=== PATIENT | male | born 1980 | race Caucasian/White ===

== ENCOUNTER 2019-05-02 09:06 | Observation (INO) | payer BC, OTHER ==
[2019-05-02] MEDS ORDERED: ONDANSETRON 4 MG TAB.RAPDIS PO ONE (09:16)
[2019-05-02] MEDS ORDERED: DICYCLOMINE HCL INJ 20 MG/2 ML AMPULE IM ONE (09:16)
--- NOTE | 2019-05-02 09:16 | ER Document Report ---
ED Medical Screen (RME) - General Chief Complaint: Vomiting Stated Complaint: ABDOMINAL PAIN,VOMITING Time Seen by Provider: 05/02/19 09:15 Notes: 38 y/o male presents for abdominal pain and n/v that started at 0430 this morning. Pt is visibly moaning in triage. Abd soft, diffusely tender. Denies fever or diarrhea. I have greeted and performed a rapid initial assessment of this patient. A comprehensive ED assessment and evaluation of the patient, analysis of test results and completion of the medical decision making process with be conducted by additional ED providers. TRAVEL OUTSIDE OF THE [place] IN LAST 30 DAYS: No - Related Data Allergies/Adverse Reactions: No Known Allergies Allergy (Verified 12/04/14 14:55) Past Medical History Past Surgical History: Reports: Hx Abdominal Surgery - hernia repair Physical Exam - Vital signs Vitals: Temp Pulse Resp BP Pulse Ox 97.5 F 49 L 16 139/86 H 100 05/02/19 09:12 05/02/19 09:12 05/02/19 09:12 05/02/19 09:12 05/02/19 09:12 Course - Vital Signs Vital signs: Temp Pulse Resp BP Pulse Ox 97.5 F 49 L 16 139/86 H 100 05/02/19 09:12 05/02/19 09:12 05/02/19 09:12 05/02/19 09:12 05/02/19 09:12
[2019-05-02] MEDS ORDERED: PROMETHAZINE HCL INJ 25 MG/1 ML VIAL IM ONE (09:17)
[2019-05-02] MEDS ORDERED: NORMAL SALINE 1000 ML 1,000 ML IV ONE (09:19)
[2019-05-02] MEDS ORDERED: MAG HYDROX/AL HYDROX/SIMETH SUSP 30 ML UDCUP PO ONE (10:31)
[2019-05-02] MEDS ORDERED: LIDOCAINE 2% VISCOUS SOLN 15 ML UDCUP PO ONE (10:31)
[2019-05-02] MEDS ORDERED: METOCLOPRAMIDE HCL ORAL SOLN 10 MG/10 ML UDCUP PO ONE (10:31)
[2019-05-02] MEDS ORDERED: MORPHINE SULFATE 10 MG/ML INJ IV ONE ×2 (10:31→14:42)
--- NOTE | 2019-05-02 10:33 | ER Document Report ---
ED GI/ - General Chief Complaint: Abdominal Pain Stated Complaint: ABDOMINAL PAIN,VOMITING Time Seen by Provider: 05/02/19 09:15 Notes: HPI: 38-year-old male who presents today with some worsening abdominal pain to the epigastric region. He states that around 4:30 AM he felt the "squeezing" intermittent abdominal discomfort without radiation to the back or lower abdomen. No radiation to the chest. No chest pain or cough. Vomiting x2. No diarrhea. No vomiting of blood. Patient supposedly has had intermittent pain like this for many years according to patient and family. He states he had endoscopy in the past that showed irritation of the stomach lining. ROS: See HPI All other review of systems reviewed and otherwise negative Reviewed vital signs and nursing note as charted by RN. PHYSICAL EXAM: CONSTITUTIONAL: Alert and oriented and responds appropriately to questions. Well-appearing; well-nourished HEAD: Normocephalic; atraumatic EYES: Sclerae non-icteric ENT: Normal nose; no rhinorrhea; moist mucous membranes; pharynx without lesions noted NECK: Supple without meningismus; non-tender; no cervical lymphadenopathy, no masses CARD: Regular rate and rhythm; no murmurs; symmetric distal pulses RESP: Normal chest excursion without splinting or tachypnea; breath sounds clear and equal bilaterally; no wheezes, no rhonchi, no rales ABD/GI: Normal bowel sounds; non-distended; soft, mild tenderness to palpation of the epigastric region. No rebound or guarding. No Zamora sign. No lower abdominal tenderness. No palpable masses or abdominal bruits BACK: The back appears normal and is non-tender to palpation EXT: Normal ROM in all joints; non-tender to palpation; no edema SKIN: No acute lesions noted NEURO: CN 2-12 intact; 5/5 bilateral upper and lower extremity strength with sensation intact to light touch PSYCH: The patient's mood and manner are appropriate. Grooming and personal hygiene are appropriate. TRAVEL OUTSIDE OF THE [place] IN LAST 30 DAYS: No - Related Data Allergies/Adverse Reactions: No Known Allergies Allergy (Verified 05/02/19 09:37) Past Medical History - Social History Smoking Status: Unknown if Ever Smoked Family History: Reviewed & Not Pertinent Patient has suicidal ideation: No Patient has homicidal ideation: No Past Surgical History: Reports: Hx Abdominal Surgery - hernia repair Physical Exam - Vital signs Vitals: Temp Pulse Resp BP Pulse Ox 97.5 F 49 L 16 139/86 H 100 05/02/19 09:12 05/02/19 09:12 05/02/19 09:12 05/02/19 09:12 05/02/19 09:12 Course - Re-evaluation Re-evalutation: 05/02/19 10:33 Given the above history and physical we will obtain basic labs, liver panel and lipase, obtain a CT scan of the abdomen and pelvis, and reassess. I do believe gallbladder pathology to be unlikely. If this is unremarkable we will attempt a GI cocktail and if this is helpful, we will discharge the patient home with strict return precautions and follow-up with endoscopy outpatient referral. 05/02/19 14:15 Labs and imaging as recorded. Patient's pain was much better for an extended period of time and is reoccurred again to the same location. Patient already h ad contrast in the bladder. Patient supposedly has been at an outside hospital already and did receive already CT scan imaging of the abdomen and pelvis. 05/02/19 14:44 Still unable to manage the patient's pain. He still rolling around on the bed. Morphine does seem to settle his pain to 1 out of 10. I have called the manager fast food. Hemoglobin is 13.9. Patient will be admitted for further evaluation. The manager fast food believes he may perform an endoscopy. Patient will be admitted to the hospital service. - Vital Signs Vital signs: Temp Pulse Resp BP Pulse Ox 97.5 F 49 L 16 139/86 H 100 05/02/19 09:12 05/02/19 09:12 05/02/19 09:12 05/02/19 09:12 05/02/19 09:12 - Laboratory Result Diagrams: 05/02/19 09:50 05/02/19 09:50 Laboratory results interpreted by me: 05/02/19 05/02/19 05/02/19 09:50 09:50 09:50 WBC 15.3 H Lymph % (Auto) 6.7 L Absolute Neuts (auto) 13.6 H Seg Neutrophils % 88.8 H Glucose 154 H Urine Ketones 20 H Urine Blood SMALL H Discharge - Discharge Clinical Impression: Epigastric abdominal pain Vomiting Qualifiers: Vomiting type: unspecified Vomiting Intractability: intractable Nausea presence: with nausea Qualified Code(s): R11.2 - Nausea with vomiting, unspecified Condition: Fair Disposition: ADMITTED OBSERVATION Admitting Provider: Elisabet (Hospitalist)
[2019-05-02 10:45] LABS: ABSOLUTE MONOCYTES (AUTO) 0.6 10^3/uL (0.1-1.4); ABSOLUTE NEUT (AUTO) 13.6 10^3/uL (1.7-8.2); BASOPHILS % (AUTO) 0.2 % (0-2); EOSINOPHILS % (AUTO) 0.1 % (0-6); HEMATOCRIT 40.6 % (37.9-51.0); HEMOGLOBIN 13.9 g/dL (13.5-17.0); LYMPHOCYTES % (AUTO) 6.7 % (13-45); MEAN CORPUSCULAR HGB CONC 34.4 g/dL (32.0-36.0); MEAN CORPUSCULAR VOLUME 90 fl (80-97); MONOCYTES % (AUTO) 4.2 % (3-13); PLATELET COUNT 223 10^3/uL (150-450); RED CELL DISTRIBUTION WIDTH 13.4 % (11.5-14.0); SEGMENTED NEUTROPHILS % (AUTO) 88.8 % (42-78); TOTAL CELLS COUNTED % (AUTO) 100 %; WHITE BLOOD COUNT 15.3 10^3/uL (4.0-10.5)
[2019-05-02 10:49] LABS: APPEARANCE,URINE CLEAR; BILIRUBIN,URINE NEGATIVE (NEGATIVE); COLOR,URINE YELLOW; GLUCOSE, URINE NEGATIVE (NEGATIVE); KETONES,URINE 20 mg/dL (NEGATIVE); PROTEIN,URINE NEGATIVE (NEGATIVE); URINE SPECIFIC GRAVITY 1.046; UROBILINOGEN,URINE NEGATIVE mg/dL (<2.0)
[2019-05-02 11:03] LABS: ALBUMIN 4.2 g/dL (3.5-5.0); ALKALINE PHOSPHATASE 69 U/L (38-126); ANION GAP 11 (5-19); ASPARTATE AMINO TRANSFERASE 21 U/L (17-59); BILIRUBIN,DIRECT 0.2 mg/dL (0.0-0.4); BILIRUBIN,TOTAL 0.4 mg/dL (0.2-1.3); BLOOD UREA NITROGEN 16 mg/dL (7-20); CALCIUM 9.2 mg/dL (8.4-10.2); CARBON DIOXIDE 24 mmol/L (22-30); CHLORIDE 104 mmol/L (98-107); GLUCOSE 154 mg/dL (75-110); TOTAL PROTEIN 7.3 g/dL (6.3-8.2)
--- NOTE | 2019-05-02 13:16 | RADIOLOGY REPORT (SQ) ---
EXAM DESCRIPTION: CT ABD/PELVIS WITH IV ONLY COMPLETED DATE/TIME: 05/02/2019 12:49 pm REASON FOR STUDY: 42; pain; vomiting COMPARISON: 12/24/2007. TECHNIQUE: CT scan of the abdomen and pelvis performed using helical scanning technique with dynamic intravenous contrast injection. No oral contrast. Images reviewed with lung, soft tissue, and bone windows. Reconstructed coronal and sagittal MPR images reviewed. Delayed images for evaluation of the urinary system also acquired. All images stored on PACS. All CT scanners at this facility use dose modulation, iterative reconstruction, and/or weight based d osing when appropriate to reduce radiation dose to as low as reasonably achievable (ALARA). [facility]: Dose Right [facility]: CareDose [facility]: Dose Right [facility]: Teradose 4D [facility]: Favor CONTRAST TYPE AND DOSE: contrast/concentration: Isovue 350.00 mg/ml; Total Contrast Delivered: 81.0 ml; Total Saline Delivered: 68.0 ml RENAL FUNCTION: BUN 16 creatinine 0.69. RADIATION DOSE: CT Rad equipment meets quality standard of care and radiation dose reduction techniq ues were employed. CTDIvol: 5.0 - 6.3 mGy. DLP: 637 mGy-cm.. LIMITATIONS: None. FINDINGS: LOWER CHEST: No significant findings. No nodules or infiltrates. LIVER: Normal size. No masses. No dilated ducts. SPLEEN: Normal size. No focal lesions. PANCREAS: No masses. No significant calcifications. No adjacent inflammation or peripancreatic fluid collections. Pancreatic duct not dilated. GALLBLADDER: Contrast is present due to biliary excretion. No inflammatory changes to suggest cholecy stitis. ADRENAL GLANDS: No significant masses or asymmetry. RIGHT KIDNEY AND URETER: No solid masses. No significant calcifications. No hydronephrosis or hyd roureter. LEFT KIDNEY AND URETER: No solid masses. No significant calcifications. No hydronephrosis or hydr oureter. AORTA AND VESSELS: No aneurysm. No dissection. Renal arteries, SMA, celiac without stenosis. RETROPERITONEUM: No retroperitoneal adenopathy, hemorrhage or masses. BOWEL AND PERITONEAL CAVITY: No masses or inflammatory changes. No free fluid or peritoneal masses. APPENDIX: Normal. PELVIS: No mass. No free fluid. Normal bladder. ABDOMINAL WALL: No masses. No hernias. BONES: No significant or acute findings. There is mild chronic wedging of several vertebrae. There is disc space narrowing with endplate sclerosis and vacuum change at L1-L2 and L5-S1. OTHER: No other significant finding. IMPRESSION: DEGENERATIVE DISC DISEASE IN THE LUMBAR SPINE. NO SIGNIFICANT OR ACUTE FINDING IN THE A BDOMEN OR PELVIS ON CT SCAN WITH IV CONTRAST. COMMENT: At the time of the scan it was noted that the patient's bladder was full of contrast. The patient than told the technical agronomist that he had a CT scan with contrast this morning at [facility]. The patient has received a double dose of intravenous contrast. Should consider hydration of the patient to ensure that there is no renal consequence. TECHNICAL DOCUMENTATION: JOB ID: [id number] Quality ID # [id number]: Final reports with documentation of one or more dose reduction techniques (e.g., Au tomated exposure control, adjustment of the mA and/or kV according to patient size, use of iterative reconstruction technique) 2010 [employer]- All Rights Reserved Reading location - IP/workstation name: [email or web address]
[2019-05-02] MEDS ORDERED: ACETAMINOPHEN 325 MG TABLET PO PRN (15:52)
[2019-05-02] MEDS ORDERED: PROMETHAZINE HCL INJ 25 MG/1 ML VIAL IV PRN (15:52)
[2019-05-02] MEDS ORDERED: ACETAMINOPHEN 650 MG SUPP.RECT PR PRN (15:52)
[2019-05-02] MEDS ORDERED: TEMAZEPAM 15 MG CAPSULE PO PRN (15:52)
[2019-05-02] MEDS ORDERED: MAG HYDROX/AL HYDROX/SIMETH SUSP 30 ML UDCUP PO PRN (15:52)
[2019-05-02] MEDS ORDERED: MORPHINE SULFATE 10 MG/ML INJ IV PRN (15:52)
--- NOTE | 2019-05-02 16:31 | PDOC H&P ---
History of Present Illness Admission Date/PCP: May 02, 2019 Patient complains of: Epigastric abdominal pain History of Present Illness: LON COLÓN is a 38 year old male who had acute onset epigastric abdominal pain at 4:30 this morning. A friend drove him to the [facility]. He was seen there at 5:00 this morning. He reports that they gave him a CT scan and discharged him. He states that the pain was no better. He reports vomiting over 20 times just this morning. He states that he had a similar episode of this type of abdominal pain approximately 5 years ago. He underwent gastroscopy and it revealed severe gastritis. His white blood cell count is elevated at 15,000. Serum chemistries are normal except for slightly elevated glucose at 115. Hemoglobin is normal at 13.9. The patient did not report the earlier mentioned department visit to the emergency room physician. A CT scan was obtained and not until after the scan did the patient revealed that he was at a stand-alone emergency department earlier in the morning. The patient will be admitted to the hospitalist service. Past Medical History Cardiac Medical History: Reports: None Pulmonary Medical History: Reports: None EENT Medical History: Reports: None Neurological Medical History: Reports: None Endocrine Medical History: Reports: None Renal/ Medical History: Reports: None Malignancy Medical History: Reports: None GI Medical History: Reports: Other - Gastritis Musculoskeltal Medical History: Reports: Other - Degenerative disc disease lumbar spine Skin Medical History: Reports: None Psychiatric Medical History: Reports: Attention Deficit Hyperactivity Disorder, Tobacco Dependency Traumatic Medical History: Reports: None Hematology: Reports: None Infectious Medical History: Reports: None Past Surgical History Past Surgical History: Reports: Herniorrhaphy, Other - Gastroscopy Social History Information Source: Patient 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 Family History Family History: None, Reviewed & Not Pertinent Parental Family History Reviewed: Yes Children Family History Reviewed: Yes Sibling(s) Family History Reviewed.: Yes Medication/Allergy Home Medications: Methocarbamol [Robaxin 500 Mg Tablet] 500 mg PO QID PRN #40 tablet 12/04/14 Ondansetron HCl [Zofran 4 mg Tablet] 1 - 2 tab PO Q6 PRN #15 tablet 12/04/14 Oxycodone HCl/Acetaminophen [Percocet 5-325 mg Tablet] 1 - 2 tab PO ASDIR PRN #25 tablet 12/04/14 Allergies/Adverse Reactions: No Known Allergies Allergy (Verified 05/02/19 09:37) Review of Systems All systems: reviewed and no additional remarkable complaints except as stated Gastrointestinal: PRESENT: abdominal pain, nausea, vomiting Neurological: ABSENT: abnormal speech, convulsions, memory loss, numbness, robert mor(s), vertigo Psychiatric: PRESENT: anxiety. ABSENT: depression Endocrine: ABSENT: cold intolerance, heat intolerance, polydipsia, polyphagia, polyuria Hematologic/Lymphatic: ABSENT: easy bleeding, easy bruising, lymphadenopathy Allergic/Immunologic: ABSENT: seasonal rhinorrhea Physical Exam Vital Signs: Temp Pulse Resp BP Pulse Ox 98.0 F 56 L 14 130/74 H 100 05/02/19 15:16 05/02/19 15:16 05/02/19 15:16 05/02/19 15:16 05/02/19 15:16 Intake & Output 05/01/19 05/02/19 05/03/19 06:59 06:59 06:59 Intake Total 1000 Balance 1000 Weight 71.1 kg General appearance: PRESENT: cooperative, well-developed, other - Well-developed 38-year-old in moderate to severe distress intermittently falling asleep from pain medicine but yet complained that his pain medicine was about to wear off and he only received a dose less than 1 hour ago. Head exam: PRESENT: atraumatic, normocephalic Eye exam: PRESENT: conjunctiva pink. ABSENT: scleral icterus Ear exam: PRESENT: normal external ear exam. ABSENT: bleeding, drainage Mouth exam: PRESENT: dry mucosa, tongue midline Neck exam: ABSENT: carotid bruit, JVD, lymphadenopathy Respiratory exam: PRESENT: clear to auscultation clarisse, symmetrical, unlabored. ABSENT: accessory muscle use, prolonged expiratory phas, rales, rhonchi, tachypnea, wheezes Cardiovascular exam: PRESENT: RRR, +S1, +S2 GI/Abdominal exam: PRESENT: normal bowel sounds, soft, tenderness - Across the epigastrium. ABSENT: distended, guarding, rigid Rectal exam: PRESENT: deferred Gentrourinary exam: ABSENT: indwelling catheter Extremities exam: ABSENT: joint swelling, pedal edema Musculoskeletal exam: PRESENT: ambulatory, normal inspection. ABSENT: deformity Neurological exam: PRESENT: awake, oriented to person, oriented to place, oriented to time, oriented to situation, CN II-XII grossly intact. ABSENT: alert - Due to IV analgesia the patient kept stating in and out between questions., altered Psychiatric exam: PRESENT: anxious. ABSENT: agitated Focused psych exam: ABSENT: delusional, internal stimuli, pressured speech, restlessness Skin exam: PRESENT: dry, normal color, warm. ABSENT: erythema, pallor, rash Results Laboratory Results: 05/02/19 09:50 05/02/19 09:50 05/02/19 05/02/19 05/02/19 09:50 09:50 09:50 WBC 15.3 H RBC 4.50 Hgb 13.9 Hct 40.6 MCV 90 MCH 31.0 MCHC 34.4 RDW 13.4 Plt Count 223 Seg Neutrophils % 88.8 H Sodium 139.0 Potassium 4.0 Chloride 104 Carbon Dioxide 24 Anion Gap 11 BUN 16 Creatinine 0.69 Est GFR ( Amer) > 60 Glucose 154 H Calcium 9.2 Total Bilirubin 0.4 AST 21 Alkaline Phosphatase 69 Total Protein 7.3 Albumin 4.2 Lipase 39.5 Urine Color YELLOW Urine Appearance CLEAR Urine pH 7.0 Ur Specific [place] 1.046 Urine Protein NEGATIVE Urine Glucose (UA) NEGATIVE Urine Ketones 20 H Urine Blood SMALL H Urine RBC (Auto) 3 Impressions: Abdomen/Pelvis CT 05/02/19 10:31 IMPRESSION: DEGENERATIVE DISC DISEASE IN THE LUMBAR SPINE. NO SIGNIFICANT OR ACUTE FINDING IN THE ABDOMEN OR PELVIS ON CT SCAN WITH IV CONTRAST. Assessment and Plan - Diagnosis (1) Epigastric abdominal pain Is this a current diagnosis for this admission?: Yes (2) Vomiting Qualifiers: Vomiting type: unspecified Vomiting Intractability: intractable Nausea presence: with nausea Qualified Code(s): R11.2 - Nausea with vomiting, unspecified Is this a current diagnosis for this admission?: Yes (3) Cannabis hyperemesis syndrome concurrent with and due to cannabis abuse Is this a current diagnosis for this admission?: Yes (4) Degenerative disc disease, lumbar Is this a current diagnosis for this admission?: Yes - Plan Summary Summary: 05/02/2019 Patient is admitted to the hospitalist service. Epigastric abdominal pain-history of severe gastritis. I have ordered Hemoccult and Gastroccult testing. I will repeat his CBC this evening and then again in the morning. The emergency department physician already spoke with Dr. De Guzman who will be seeing the patient in consult. I will make him n.p.o. for possible gastroscopy tomorrow. The patient has been placed on IV Protonix 40 mg every 12 hours as well. Morphine will be available for analgesia as well acetaminophen. I have placed him on intravenous normal saline as well. Vomiting-the patient admits to occasional marijuana use. I have ordered a urine drug screen to see if his use was recent. This is possibly hyperemesis related to marijuana (cyclic vomiting) due to the pattern of 20 episodes of vomiting over the course of 3 to 4 hours. Gastritis usually does not cause that level of vomiting. And I would have expected some blood in the vomitus. Additionally his lipase was negative and so there is no evidence of pancreatitis by blood test or CT scan. He does admit to 3-6 beers daily and so this certainly could be an alcohol related gastritis. I will administer thiamine and IV fluids. Benzodiazepines will be available in the event of withdrawal. Degenerative disc disease of the lumbar spine-the patient states that the previous episode similar to this was caused by taking a lot of "pain "medicines. I asked specifically about ibuprofen and naproxen. He said that he has never had a problem with these medications and he tolerates them. He did just receive intravenous morphine and so I am not sure how reliable he is as a historian at this moment. Degenerative disc disease certainly could be a reason to use NSA IDs. He did state that he does not take anything unless it is "killing" him. - Time Time Spent with patient: 35 or more minutes Smoking Cessation Education: 3 to 10 minutes Medications reviewed and adjusted accordingly: Yes Anticipated discharge: Home Within: within 48 hours
[2019-05-02] MEDS: NORMAL SALINE 1000 ML 1,000 ML IV PRN (18:12)
[2019-05-02 18:32] LABS: HEMATOCRIT 41.2 % (37.9-51.0); HEMOGLOBIN 14.3 g/dL (13.5-17.0); MEAN CORPUSCULAR HGB CONC 34.7 g/dL (32.0-36.0); MEAN CORPUSCULAR VOLUME 90 fl (80-97); PLATELET COUNT 240 10^3/uL (150-450); RED BLOOD COUNT 4.61 10^6/uL (4.35-5.55); RED CELL DISTRIBUTION WIDTH 13.1 % (11.5-14.0); WHITE BLOOD COUNT 13.9 10^3/uL (4.0-10.5)
--- NOTE | 2019-05-02 20:59 | PDOC CONSULTATION ---
Consultation Consult Date: 05/02/19 Provider Consulted: LETI RAHMAN Consult reason:: epigastric pain History of Present Illness Admission Date/PCP: 05/02/19 16:10 History of Present Illness: LON COLÓN is a 38 year old male patient admitted for epigastric abdominal pain supposed GI bleeding but Hgb on repeat is stable post hydration no melena went to ED x [address] scan negative was admitted here admits to heavy alcohol use denies any dysphagia there is no nausea or vomiting denies any NSAIDS use no early satiety MSO4 makes it better Past Medical History Cardiac Medical History: Reports: None Denies: Congestive Heart Failure, Myocardial Infarction, Hypertension Pulmonary Medical History: Reports: None Denies: Asthma, Bronchitis, Chronic Obstructive Pulmonary Disease (COPD), Pneumonia, Tuberculosis EENT Medical History: Reports: None Neurological Medical History: Reports: None Denies: Seizures Endocrine Medical History: Reports: None Renal/ Medical History: Reports: None Denies: End Stage Renal Disease Malignancy Medical History: Reports: None GI Medical History: Reports: Gastroesophageal Reflux Disease - DRINKS MILK WHEN GETS IT, Other - Gastritis Denies: Cirrhosis Musculoskeltal Medical History: Reports: Arthritis, Other - Degenerative disc disease lumbar spine Skin Medical History: Reports: None Psychiatric Medical History: Reports: Attention Deficit Hyperactivity Disorder, Tobacco Dependency Denies: Bipolar Disorder, Depression Traumatic Medical History: Reports: None Hematology: Reports: None Denies: Anemia, Bleeding Tendencies Infectious Medical History: Reports: None Past Surgical History Past Surgical History: Reports: Herniorrhaphy, Other - Gastroscopy Social History Lives with: Family Smoking Status: Never Smoker Electronic Cigarette use?: No Frequency of Alcohol Use: Heavy - 3-6 beers daily Hx Recreational Drug Use: Yes Drugs: Marijuana Hx Prescription Drug Abuse: No - Advance Directive Resuscitation Status: Full Code Family History Family History: None, Reviewed & Not Pertinent Parental Family History Reviewed: Yes Children Family History Reviewed: Unknown Sibling(s) Family History Reviewed.: Unknown Medication/Allergy Home Medications: Dextroamphetamine/Amphetamine [Adderall Xr 5 mg Capsule] 10 mg PO DAILY MDD LAST FILLED 03-09-19 FOR 30 DS 05/02/19 Allergies/Adverse Reactions: No Known Allergies Allergy (Verified 05/02/19 09:37) Review of Systems Constitutional: ABSENT: fever(s), headache(s), night sweats, weakness Eyes: ABSENT: visual disturbances Ears: ABSENT: hearing changes Nose, Mouth, and Throat: ABSENT: mouth pain, sore throat Respiratory: ABSENT: dyspnea, hemoptysis Gastrointestinal: ABSENT: hematemesis, hematochezia, melena, nausea, vomiting Genitourinary: ABSENT: dysuria, hematuria Neurological: ABSENT: syncope, tingling, tremor(s), vertigo Endocrine: ABSENT: polydipsia, polyphagia, polyuria Hematologic/Lymphatic: ABSENT: easy bruising Physical Exam Vital Signs: Temp Pulse Resp BP Pulse Ox 98.2 F 87 20 122/74 99 05/02/19 18:01 05/02/19 18:01 05/02/19 18:01 05/02/19 18:01 05/02/19 18:01 Intake & Output 05/01/19 05/02/19 05/03/19 06:59 06:59 06:59 Intake Total 1000 Balance 1000 Weight 71.1 kg General appearance: PRESENT: mild distress, well-developed, well-nourished Head exam: PRESENT: atraumatic, normocephalic Eye exam: PRESENT: EOMI, PERRLA. ABSENT: nystagmus, periorbital swelling, scleral icterus Mouth exam: PRESENT: moist, neck supple Neck exam: ABSENT: meningismus, thyromegaly, tracheal deviation Cardiovascular exam: PRESENT: RRR, +S1, +S2 GI/Abdominal exam: PRESENT: normal bowel sounds. ABSENT: Zamora's sign, organolmegaly Extremities exam: ABSENT: joint swelling, pedal edema Musculoskeletal exam: PRESENT: full ROM Neurological exam: PRESENT: CN II-XII grossly intact Psychiatric exam: PRESENT: appropriate affect Skin exam: PRESENT: normal color, pallor, petechiae, urticaria, vesicles Results Laboratory Results: 05/02/19 18:20 05/02/19 09:50 05/02/19 05/02/19 05/02/19 09:50 09:50 09:50 WBC 15.3 H RBC 4.50 Hgb 13.9 Hct 40.6 MCV 90 MCH 31.0 MCHC 34.4 RDW 13.4 Plt Count 223 Seg Neutrophils % 88.8 H Sodium 139.0 Potassium 4.0 Chloride 104 Carbon Dioxide 24 Anion Gap 11 BUN 16 Creatinine 0.69 Est GFR ( Amer) > 60 Glucose 154 H Calcium 9.2 Total Bilirubin 0.4 AST 21 Alkaline Phosphatase 69 Total Protein 7.3 Albumin 4.2 Lipase 39.5 Urine Color YELLOW Urine Appearance CLEAR Urine pH 7.0 Ur Specific [place] 1.046 Urine Protein NEGATIVE Urine Glucose (UA) NEGATIVE Urine Ketones 20 H Urine Blood SMALL H Urine RBC (Auto) 3 05/02/19 18:20 WBC 13.9 H RBC 4.61 Hgb 14.3 Hct 41.2 MCV 90 MCH 31.0 MCHC 34.7 RDW 13.1 Plt Count 240 Seg Neutrophils % Sodium Potassium Chloride Carbon Dioxide Anion Gap BUN Creatinine Est GFR ( Amer) Glucose Calcium Total Bilirubin AST Alkaline Phosphatase Total Protein Albumin Lipase Urine Color Urine Appearance Urine pH Ur Specific [place] Urine Protein Urine Glucose (UA) Urine Ketones Urine Blood Urine RBC (Auto) Impressions: Abdomen/Pelvis CT 05/02/19 10:31 IMPRESSION: DEGENERATIVE DISC DISEASE IN THE LUMBAR SPINE. NO SIGNIFICANT OR ACUTE FINDING IN THE ABDOMEN OR PELVIS ON CT SCAN WITH IV CONTRAST. Assessment & Plan - Diagnosis (1) Epigastric abdominal pain Is this a current diagnosis for this admission?: Yes Plan: should review CT scan of other hospital to make sure no other etiology aortic dissection should be excluded need to get troponins to rule out [place] possibly could need an EGD if all else is negative he will need propofol sedation Risks, benefits and alternatives are explained to the patient further recommendations to follow - Time Time Spent: 50 to 70 Minutes
[2019-05-02] MEDS: PANTOPRAZOLE SODIUM 40 MG VIAL IV SCH (21:25)
[2019-05-02] MEDS ORDERED: ZOLPIDEM TARTRATE 5 MG TABLET PO PRN (23:31)
[2019-05-03] MEDS: NORMAL SALINE 1000 ML 1,000 ML IV PRN ×2 (00:16→06:07)
[2019-05-03 05:30] LABS: HEMOGLOBIN 12.9 g/dL (13.5-17.0); MEAN CORPUSCULAR HEMOGLOBIN 31.3 pg (27.0-33.4); MEAN CORPUSCULAR HGB CONC 34.8 g/dL (32.0-36.0); MEAN CORPUSCULAR VOLUME 90 fl (80-97); PLATELET COUNT 199 10^3/uL (150-450); RED BLOOD COUNT 4.13 10^6/uL (4.35-5.55); RED CELL DISTRIBUTION WIDTH 13.2 % (11.5-14.0); WHITE BLOOD COUNT 12.5 10^3/uL (4.0-10.5)
[2019-05-03 05:48] LABS: ANION GAP 6 (5-19); BLOOD UREA NITROGEN 11 mg/dL (7-20); CALCIUM 8.3 mg/dL (8.4-10.2); CARBON DIOXIDE 26 mmol/L (22-30); CHLORIDE 107 mmol/L (98-107); GLUCOSE 97 mg/dL (75-110); POTASSIUM 3.7 mmol/L (3.6-5.0)
[2019-05-03 09:14] LABS: URINE AMPHETAMINES SCREEN NEGATIVE; URINE BARBITURATES SCREEN NEGATIVE; URINE BENZODIAZEPINES SCREEN NEGATIVE; URINE COCAINE SCREEN NEGATIVE; URINE METHADONE SCREEN NEGATIVE; URINE PHENCYCLIDINE SCREEN NEGATIVE
[2019-05-03 09:19] LABS: URINE MARIJUANA (THC) SCREEN UNCONFIRMED POSITIVE
[2019-05-03] MEDS ORDERED: PROPOFOL INJ 200 MG/20 ML VIAL IV ONE (09:30)
[2019-05-03] MEDS: PANTOPRAZOLE SODIUM 40 MG VIAL IV SCH (09:45)
--- NOTE | 2019-05-03 10:50 | Operative Report ---
Operative Report DATE OF SURGERY: 05/03/19 Operative Report: The risks benefits and alternatives of the procedure explained to the patient in detail and informed consent is obtained.A GIF Olympus video scope was inserted into the patient's mouth and hypopharynx, the esophagus is identified intubated and insufflated, the scope was then advanced through the esophagus stomach and duodenum ,retroflexion maneuver is done ,the esophagus stomach and first and second portions of the duodenum examined PREOPERATIVE DIAGNOSIS: Epigastric pain POSTOPERATIVE DIAGNOSIS: Mild esophagitis. Negative findings in the stomach. Biopsies obtained to rule out H. pylori. No ulcers noted OPERATION: EGD with biopsy SURGEON: LETI RAHMAN ANESTHESIA: LMAC TISSUE REMOVED OR ALTERED: As noted above. COMPLICATIONS: None. ESTIMATED BLOOD LOSS: None. INTRAOPERATIVE FINDINGS: As noted above. PROCEDURE: Patient tolerated the procedure well. He is sent back to his room in good condition. Negative findings from the GI standpoint Resume regular diet Resume previous activity level Wait on the biopsies We will sign off please call if needed
[2019-05-03 12:37] VITALS: BP 133/70
--- NOTE | 2019-05-03 14:36 | PDOC TRANSFER SUMMARY ---
Impression - Admit/DC Date/PCP Admission Date/Primary Care Provider: 05/02/19 16:10 Discharge Date: 05/03/19 - Discharge Diagnosis (1) Epigastric abdominal pain Is this a current diagnosis for this admission?: Yes (2) Vomiting Is this a current diagnosis for this admission?: Yes (3) Cannabis hyperemesis syndrome concurrent with and due to cannabis abuse Is this a current diagnosis for this admission?: Yes (4) Degenerative disc disease, lumbar Is this a current diagnosis for this admission?: Yes - Assessment Summary: 05/02/2019 Patient is admitted to the hospitalist service. Epigastric abdominal pain-history of severe gastritis. I have ordered Hemoccult and Gastroccult testing. I will repeat his CBC this evening and then again in the morning. The emergency department physician already spoke with Dr. Rahman who will be seeing the patient in consult. I will make him n.p.o. for possible gastroscopy tomorrow. The patient has been placed on IV Protonix 40 mg every 12 hours as well. Morphine will be available for analgesia as well acetaminophen. I have placed him on intravenous normal saline as well. Vomiting-the patient admits to occasional marijuana use. I have ordered a urine drug screen to see if his use was recent. This is possibly hyperemesis related to marijuana (cyclic vomiting) due to the pattern of 20 episodes of vomiting over the course of 3 to 4 hours. Gastritis usually does not cause that level of vomiting. And I would have expected some blood in the vomitus. Additionally his lipase was negative and so there is no evidence of pancreatitis by blood test or CT scan. He does admit to 3-6 beers daily and so this certainly could be an alcohol related gastritis. I will administer thiamine and IV fluids. Benzodiazepines will be available in the event of withdrawal. Degenerative disc disease of the lumbar spine-the patient states that the previous episode similar to this was caused by taking a lot of "pain "medicines. I asked specifically about ibuprofen and naproxen. He said that he has never had a problem with these medications and he tolerates them. He did just receive intravenous morphine and so I am not sure how reliable he is as a historian at this moment. Degenerative disc disease certainly could be a reason to use NSAIDs. He did state that he does not take anything unless it is "killing" him. - Additional Information Resuscitation Status: Full Code Discharge Diet: Other (Comments) - Suggest low caffeine and avoid spicy foods for several weeks. Discharge Activity: Activity As Tolerated Referrals: LETI RAHMAN MD [ACTIVE STAFF] - 05/30/19 3:00 pm Home Medications: Dextroamphetamine/Amphetamine [Adderall Xr 5 mg Capsule] 10 mg PO DAILY MDD LAST FILLED 03-09-19 FOR 30 DS 05/02/19 Physical Exam Vital Signs: Temp Pulse Resp BP Pulse Ox 98.7 F 65 16 133/70 H 98 05/03/19 12:12 05/03/19 12:12 05/03/19 12:12 05/03/19 12:12 05/03/19 12:12 Intake & Output 05/02/19 05/03/19 05/04/19 06:59 06:59 06:59 Intake Total 3127 700 Output Total 1100 Balance 3127 -400 Weight 68.4 kg Results Laboratory Results: WBC 12.5 10^3/uL (4.0-10.5) H 05/03/19 04:41 RBC 4.13 10^6/uL (4.35-5.55) L 05/03/19 04:41 Hgb 12.9 g/dL (13.5-17.0) L 05/03/19 04:41 Hct 37.0 % (37.9-51.0) L 05/03/19 04:41 MCV 90 fl (80-97) 05/03/19 04:41 MCH 31.3 pg (27.0-33.4) 05/03/19 04:41 MCHC 34.8 g/dL (32.0-36.0) 05/03/19 04:41 RDW 13.2 % (11.5-14.0) 05/03/19 04:41 Plt Count 199 10^3/uL (150-450) 05/03/19 04:41 Lymph % (Auto) 6.7 % (13-45) L 05/02/19 09:50 [place] % (Auto) 4.2 % (3-13) 05/02/19 09:50 Eos % (Auto) 0.1 % (0-6) 05/02/19 09:50 Baso % (Auto) 0.2 % (0-2) 05/02/19 09:50 Absolute Neuts (auto) 13.6 10^3/uL (1.7-8.2) H 05/02/19 09:50 Absolute Lymphs (auto) 1.0 10^3/uL (0.5-4.7) 05/02/19 09:50 Absolute Monos (auto) 0.6 10^3/uL (0.1-1.4) 05/02/19 09:50 Absolute Eos (auto) 0.0 10^3/uL (0.0-0.6) 05/02/19 09:50 Absolute Basos (auto) 0.0 10^3/uL (0.0-0.2) 05/02/19 09:50 Seg Neutrophils % 88.8 % (42-78) H 05/02/19 09:50 Sodium 138.8 mmol/L (137-145) 05/03/19 04:41 Potassium 3.7 mmol/L (3.6-5.0) 05/03/19 04:41 Chloride 107 mmol/L (98-107) 05/03/19 04:41 Carbon Dioxide 26 mmol/L (22-30) 05/03/19 04:41 Anion Gap 6 (5-19) 05/03/19 04:41 BUN 11 mg/dL (7-20) 05/03/19 04:41 Creatinine 0.69 mg/dL (0.52-1.25) 05/03/19 04:41 Est GFR ( Amer) > 60 (>60) 05/03/19 04:41 Est GFR (MDRD) Non-Af > 60 (>60) 05/03/19 04:41 Glucose 97 mg/dL (75-110) 05/03/19 04:41 Calcium 8.3 mg/dL (8.4-10.2) L 05/03/19 04:41 Magnesium 2.0 mg/dL (1.6-2.3) 05/03/19 04:41 Total Bilirubin 0.4 mg/dL (0.2-1.3) 05/02/19 09:50 Direct Bilirubin 0.2 mg/dL (0.0-0.4) 05/02/19 09:50 Neonat Total Bilirubin Not Reportable 05/02/19 09:50 Neonat Direct Bilirubin Not Reportable 05/02/19 09:50 Neonat Indirect Bili Not Reportable 05/02/19 09:50 AST 21 U/L (17-59) 05/02/19 09:50 ALT 15 U/L (<50) 05/02/19 09:50 Alkaline Phosphatase 69 U/L (38-126) 05/02/19 09:50 Troponin I < 0.012 ng/mL 05/03/19 04:41 Total Protein 7.3 g/dL (6.3-8.2) 05/02/19 09:50 Albumin 4.2 g/dL (3.5-5.0) 05/02/19 09:50 Lipase 39.5 U/L (23-300) 05/02/19 09:50 Urine Color YELLOW 05/02/19 09:50 Urine Appearance CLEAR 05/02/19 09:50 Urine pH 7.0 (5.0-9.0) 05/02/19 09:50 Ur Specific [place] 1.046 05/02/19 09:50 Urine Protein NEGATIVE mg/dL (NEGATIVE) 05/02/19 09:50 Urine Glucose (UA) NEGATIVE mg/dL (NEGATIVE) 05/02/19 09:50 Urine Ketones 20 mg/dL (NEGATIVE) H 05/02/19 09:50 Urine Blood SMALL (NEGATIVE) H 05/02/19 09:50 Urine Nitrite (Reflex) NEGATIVE (NEGATIVE) 05/02/19 09:50 Urine Bilirubin NEGATIVE (NEGATIVE) 05/02/19 09:50 Urine Urobilinogen NEGATIVE mg/dL (<2.0) 05/02/19 09:50 Leukocyte Esterase Rfl NEGATIVE (NEGATIVE) 05/02/19 09:50 Urine RBC (Auto) 3 /HPF 05/02/19 09:50 Urine WBC (Reflex) 3 /HPF 05/02/19 09:50 Squamous Epi Cells Auto <1 /HPF 05/02/19 09:50 Urine Mucus (Auto) RARE /LPF 05/02/19 09:50 Urine Ascorbic Acid NEGATIVE (NEGATIVE) 05/02/19 09:50 Stool Occult Blood NEGATIVE (NEGATIVE) 05/03/19 08:27 Urine Opiates Screen UNCONFIRMED POSITIVE 05/02/19 09:50 Urine Methadone Screen NEGATIVE 05/02/19 09:50 Ur Barbiturates Screen NEGATIVE 05/02/19 09:50 Ur Phencyclidine Scrn NEGATIVE 05/02/19 09:50 Ur Amphetamines Screen NEGATIVE 05/02/19 09:50 U Benzodiazepines Scrn NEGATIVE 05/02/19 09:50 Urine Cocaine Screen NEGATIVE 05/02/19 09:50 U Marijuana (THC) Screen UNCONFIRMED POSITIVE 05/02/19 09:50 05/03/19 04:41 Troponin I < 0.012 Impressions: Abdomen/Pelvis CT 05/02/19 10:31 IMPRESSION: DEGENERATIVE DISC DISEASE IN THE LUMBAR SPINE. NO SIGNIFICANT OR ACUTE FINDING IN THE ABDOMEN OR PELVIS ON CT SCAN WITH IV CONTRAST.
--- NOTE | 2019-05-05 11:00 | PDOC DISCHARGE SUMMARY ---
Impression - Admit/DC Date/PCP Admission Date/Primary Care Provider: 05/02/19 16:10 Discharge Date: 05/03/19 - Discharge Diagnosis (1) Epigastric abdominal pain Is this a current diagnosis for this admission?: Yes (2) Vomiting Is this a current diagnosis for this admission?: Yes (3) Cannabis hyperemesis syndrome concurrent with and due to cannabis abuse Is this a current diagnosis for this admission?: Yes (4) Degenerative disc disease, lumbar Is this a current diagnosis for this admission?: Yes - Assessment Summary: 05/02/2019 Patient is admitted to the hospitalist service. Epigastric abdominal pain-history of severe gastritis. I have ordered Hemoccult and Gastroccult testing. I will repeat his CBC this evening and then again in the morning. The emergency department physician already spoke with Dr. Rahman who will be seeing the patient in consult. I will make him n.p.o. for possible gastroscopy tomorrow. The patient has been placed on IV Protonix 40 mg every 12 hours as well. Morphine will be available for analgesia as well acetaminophen. I have placed him on intravenous normal saline as well. Vomiting-the patient admits to occasional marijuana use. I have ordered a urine drug screen to see if his use was recent. This is possibly hyperemesis related to marijuana (cyclic vomiting) due to the pattern of 20 episodes of vomiting over the course of 3 to 4 hours. Gastritis usually does not cause that level of vomiting. And I would have expected some blood in the vomitus. Additionally his lipase was negative and so there is no evidence of pancreatitis by blood test or CT scan. He does admit to 3-6 beers daily and so this certainly could be an alcohol related gastritis. I will administer thiamine and IV fluids. Benzodiazepines will be available in the event of withdrawal. Degenerative disc disease of the lumbar spine-the patient states that the previous episode similar to this was caused by taking a lot of "pain "medicines. I asked specifically about ibuprofen and naproxen. He said that he has never had a problem with these medications and he tolerates them. He did just receive intravenous morphine and so I am not sure how reliable he is as a historian at this moment. Degenerative disc disease certainly could be a reason to use NSAIDs. He did state that he does not take anything unless it is "killing" him. - Additional Information Resuscitation Status: Full Code Discharge Diet: Other (Comments) Discharge Activity: Activity As Tolerated Referrals: [facility] [Other] - 06/03/19 11:30 am (Patient Made Follow Up Appointment) LETI RAHMAN MD [ACTIVE STAFF] - 05/30/19 3:00 pm Home Medications: Dextroamphetamine/Amphetamine [Adderall Xr 5 mg Capsule] 10 mg PO DAILY MDD LAST FILLED 03-09-19 FOR 30 DS 05/02/19 History of Present Illiness History of Present Illness: LON COLÓN is a 38 year old male who had acute onset epigastric abdominal pain at 4:30 this morning. A friend drove him to the [place] emergency department. He was seen there at 5:00 this morning. He reports that they gave him a CT scan and discharged him. He states that the pain was no better. He reports vomiting over 20 times just this morning. He states that he had a similar episode of this type of abdominal pain approximately 5 years ago. He underwent gastroscopy and it revealed severe gastritis. His white blood cell count is elevated at 15,000. Serum chemistries are normal except for slightly elevated glucose at 115. Hemoglobin is normal at 13.9. The patient did not report the earlier mentioned department visit to the emergency room physician. A CT scan was obtained and not until after the scan did the patient revealed that he was at a stand-alone emergency department earlier in the morning. The patient will be admitted to the hospitalist service. Hospital Course Hospital Course: The patient had benign hospital course. Endoscopy revealed some esophagitis but no ulcer and no obvious source of hyperemesis. The patient admitted to smoking more marijuana than he admitted to on admission. In fact a lengthy discussion with his and the patient gave ample evidence to support hyperemesis related to cannabis. We then discussed why he felt the need to smoke so much marijuana. He admitted to multiple stressors and issues in his life. I strongly suggested that he revisit the topic of anxiety and depression with his primary care provider and seriously consider utilizing antidepressant medication to be able to cease all recreational drug use. His was very supportive of this. Physical Exam Vital Signs: Temp Pulse Resp BP Pulse Ox 98.7 F 65 16 133/70 H 98 05/03/19 15:31 05/03/19 15:31 05/03/19 15:31 05/03/19 12:12 05/03/19 15:31 Intake & Output 05/04/19 05/05/19 05/06/19 06:59 06:59 06:59 Intake Total 700 Output Total 1100 Balance -400 General appearance: PRESENT: no acute distress, cooperative, well-developed Respiratory exam: PRESENT: clear to auscultation clarisse, symmetrical, unlabored. ABSENT: rales, stridor, tachypnea, wheezes Cardiovascular exam: PRESENT: RRR, +S1, +S2. ABSENT: diastolic murmur, systolic murmur GI/Abdominal exam: PRESENT: normal bowel sounds, soft. ABSENT: distended, gua rding, mass, tenderness Rectal exam: PRESENT: deferred Gentrourinary exam: ABSENT: indwelling catheter Extremities exam: ABSENT: pedal edema Musculoskeletal exam: PRESENT: ambulatory, full ROM, normal inspection Neurological exam: PRESENT: alert, awake, oriented to person, oriented to place, oriented to time, oriented to situation, CN II-XII grossly intact, motor sensory deficit. ABSENT: altered Psychiatric exam: PRESENT: appropriate affect. ABSENT: agitated, anxious, unusual affect Focused psych exam: ABSENT: delusional, paranoid, restlessness Results Laboratory Results: WBC 12.5 10^3/uL (4.0-10.5) H 05/03/19 04:41 RBC 4.13 10^6/uL (4.35-5.55) L 05/03/19 04:41 Hgb 12.9 g/dL (13.5-17.0) L 05/03/19 04:41 Hct 37.0 % (37.9-51.0) L 05/03/19 04:41 MCV 90 fl (80-97) 05/03/19 04:41 MCH 31.3 pg (27.0-33.4) 05/03/19 04:41 MCHC 34.8 g/dL (32.0-36.0) 05/03/19 04:41 RDW 13.2 % (11.5-14.0) 05/03/19 04:41 Plt Count 199 10^3/uL (150-450) 05/03/19 04:41 Lymph % (Auto) 6.7 % (13-45) L 05/02/19 09:50 [place] % (Auto) 4.2 % (3-13) 05/02/19 09:50 Eos % (Auto) 0.1 % (0-6) 05/02/19 09:50 Baso % (Auto) 0.2 % (0-2) 05/02/19 09:50 Absolute Neuts (auto) 13.6 10^3/uL (1.7-8.2) H 05/02/19 09:50 Absolute Lymphs (auto) 1.0 10^3/uL (0.5-4.7) 05/02/19 09:50 Absolute Monos (auto) 0.6 10^3/uL (0.1-1.4) 05/02/19 09:50 Absolute Eos (auto) 0.0 10^3/uL (0.0-0.6) 05/02/19 09:50 Absolute Basos (auto) 0.0 10^3/uL (0.0-0.2) 05/02/19 09:50 Seg Neutrophils % 88.8 % (42-78) H 05/02/19 09:50 Sodium 138.8 mmol/L (137-145) 05/03/19 04:41 Potassium 3.7 mmol/L (3.6-5.0) 05/03/19 04:41 Chloride 107 mmol/L (98-107) 05/03/19 04:41 Carbon Dioxide 26 mmol/L (22-30) 05/03/19 04:41 Anion Gap 6 (5-19) 05/03/19 04:41 BUN 11 mg/dL (7-20) 05/03/19 04:41 Creatinine 0.69 mg/dL (0.52-1.25) 05/03/19 04:41 Est GFR ( Amer) > 60 (>60) 05/03/19 04:41 Est GFR (MDRD) Non-Af > 60 (>60) 05/03/19 04:41 Glucose 97 mg/dL (75-110) 05/03/19 04:41 Calcium 8.3 mg/dL (8.4-10.2) L 05/03/19 04:41 Magnesium 2.0 mg/dL (1.6-2.3) 05/03/19 04:41 Total Bilirubin 0.4 mg/dL (0.2-1.3) 05/02/19 09:50 Direct Bilirubin 0.2 mg/dL (0.0-0.4) 05/02/19 09:50 Neonat Total Bilirubin Not Reportable 05/02/19 09:50 Neonat Direct Bilirubin Not Reportable 05/02/19 09:50 Neonat Indirect Bili Not Reportable 05/02/19 09:50 AST 21 U/L (17-59) 05/02/19 09:50 ALT 15 U/L (<50) 05/02/19 09:50 Alkaline Phosphatase 69 U/L (38-126) 05/02/19 09:50 Troponin I < 0.012 ng/mL 05/03/19 04:41 Total Protein 7.3 g/dL (6.3-8.2) 05/02/19 09:50 Albumin 4.2 g/dL (3.5-5.0) 05/02/19 09:50 Lipase 39.5 U/L (23-300) 05/02/19 09:50 Urine Color YELLOW 05/02/19 09:50 Urine Appearance CLEAR 05/02/19 09:50 Urine pH 7.0 (5.0-9.0) 05/02/19 09:50 Ur Specific [place] 1.046 05/02/19 09:50 Urine Protein NEGATIVE mg/dL (NEGATIVE) 05/02/19 09:50 Urine Glucose (UA) NEGATIVE mg/dL (NEGATIVE) 05/02/19 09:50 Urine Ketones 20 mg/dL (NEGATIVE) H 05/02/19 09:50 Urine Blood SMALL (NEGATIVE) H 05/02/19 09:50 Urine Nitrite (Reflex) NEGATIVE (NEGATIVE) 05/02/19 09:50 Urine Bilirubin NEGATIVE (NEGATIVE) 05/02/19 09:50 Urine Urobilinogen NEGATIVE mg/dL (<2.0) 05/02/19 09:50 Leukocyte Esterase Rfl NEGATIVE (NEGATIVE) 05/02/19 09:50 Urine RBC (Auto) 3 /HPF 05/02/19 09:50 Urine WBC (Reflex) 3 /HPF 05/02/19 09:50 Squamous Epi Cells Auto <1 /HPF 05/02/19 09:50 Urine Mucus (Auto) RARE /LPF 05/02/19 09:50 Urine Ascorbic Acid NEGATIVE (NEGATIVE) 05/02/19 09:50 Stool Occult Blood NEGATIVE (NEGATIVE) 05/03/19 08:27 Urine Opiates Screen UNCONFIRMED POSITIVE 05/02/19 09:50 Urine Methadone Screen NEGATIVE 05/02/19 09:50 Ur Barbiturates Screen NEGATIVE 05/02/19 09:50 Ur Phencyclidine Scrn NEGATIVE 05/02/19 09:50 Ur Amphetamines Screen NEGATIVE 05/02/19 09:50 U Benzodiazepines Scrn NEGATIVE 05/02/19 09:50 Urine Cocaine Screen NEGATIVE 05/02/19 09:50 U Marijuana (THC) Screen UNCONFIRMED POSITIVE 05/02/19 09:50 05/03/19 04:41 Troponin I < 0.012 Impressions: Abdomen/Pelvis CT 05/02/19 10:31 IMPRESSION: DEGENERATIVE DISC DISEASE IN THE LUMBAR SPINE. NO SIGNIFICANT OR ACUTE FINDING IN THE ABDOMEN OR PELVIS ON CT SCAN WITH IV CONTRAST. Plan Health Concerns: Serious concerns regarding continued use of marijuana as well as untreated anxiety and depression. Plan of Treatment: Cease utilizing marijuana. Obtain help from primary care provider and possibly psychiatric services for depression and anxiety Goals: As above Time Spent: Greater than 30 Minutes Stroke Is this a Stroke Patient?: No Acute Heart Failure - Is this a Heart Failure Patient?: No
== END 2019-05-03 16:24 | disposition home or self-care (01) ==
LOC: ER 09:06 → EH 16:10 → 4S 17:54
PROVIDERS: ADMIT Hospitalist; ATTEND Hospitalist
DX: K29.50 Unspecified chronic gastritis without bleeding (principal); K20.9 Esophagitis, unspecified; F12.188 Cannabis abuse with other cannabis-induced disorder; R11.15 Cyclical vomiting syndrome unrelated to migraine; M51.36 Other intervertebral disc degeneration, lumbar region; F41.9 Anxiety disorder, unspecified; F32.9 Major depressive disorder, single episode, unspecified; Z73.3 Stress, not elsewhere classified; Z98.890 Other specified postprocedural states; F90.9 Attention-deficit hyperactivity disorder, unspecified type; Z72.89 Other problems related to lifestyle; Z79.899 Other long term (current) drug therapy
CPT/HCPCS: 96376; 99285; 96372; 96361; 96374; 43239; 36415 ×2; 83690; 83735; 85025; 85027; 82272; 80048; 80053; 81001; 84484; 80307; 88342 ×2; 88305 ×2; 74177; 00731; G0378 ×3; J0500; S0119; J3490; J2270; C9113 ×2; J2550; J7030 ×2; J2704; 731